=== PATIENT | male | born 1975 | race Caucasian/White ===

== ENCOUNTER 2016-10-27 15:11 | Emergency (ER) | payer BC, OTHER ==
[~2016-10-27] VITALS: Ht 185.4 cm; Wt 95.0 kg
[~2016-10-27 15:11] MED LIST: WARF5TAB72 PO
[2016-10-27 15:12] VITALS: Ht 185.4 cm; Wt 95.0 kg
[2016-10-27 16:55] LABS: INR 1.67; PARTIAL THROMBOPLASTIN TIME 35.5 Sec (25.0-35.0); PROTIME 19.8 Sec (12.2-14.2); PT RATIO 1.5
--- NOTE | 2016-10-27 17:24 | ERD ---
ER Documentation Chief Complaint Date/Time DATE: 10/27/16 TIME: 17:21 Chief Complaint LAB WORK REQUEST HPI 41-year-old female patient with a past medical history of aortic valve surgery in 1994 has been taking Coumadin for the past 12 years. States that he is here for a laboratory test for his INR. Patient is a poor historian and states that he has been taking Coumadin 5 mg but they increased it to 7.5 mg and 10 mg at some point and is unsure if they mixed up his INR level from 2 weeks ago and came himself here to check the level. Denies any chest pain, shortness of breath, fever, chills, abdominal pain, wheezing, dyspnea on exertion, wheezing. ROS All systems reviewed and are negative except as per history of present illness. Medications Home Meds Active Scripts Warfarin Sodium* (Coumadin*) 5 Mg Tablet, 2 MG PO DAILY, #10 TAB Prov:WILLIAM ELIZONDO MD 03/19/15 Warfarin Sodium* (Coumadin*) 5 Mg Tablet, 5 MG PO DAILY, #30 TAB Prov:WILLIAM ELIZONDO MD 03/19/15 Reported Medications Warfarin Sodium* (Coumadin*) 5 Mg Tablet, 5 MG PO DAILY, TAB 02/09/14 Allergies Allergies: Coded Allergies: No Known Allergy (Unverified , 03/19/15) PMhx/Soc History of Surgery: Yes (HEART VALVE) Anesthesia Reaction: No Hx Neurological Disorder: No Hx Respiratory Disorders: No Hx Cardiac Disorders: Yes (HEART VALVE) Hx Psychiatric Problems: No Hx Miscellaneous Medical Probl: No Hx Alcohol Use: No Hx Substance Use: No Hx Tobacco Use: No Smoking Status: Never smoker Physical Exam Vitals Vital Signs Date Time Temp Pulse Resp B/P Pulse Ox O2 Delivery O2 Flow Rate FiO2 10/27/16 15:12 97.3 72 19 131/83 97 Physical Exam Const: [id number]-[id number]-[id number], well-nourished. In no acute distress. Head: Atraumatic, normocephalic Eyes: Normal Conjunctiva without injection. No purulent discharge. PERRL. EOMI ENT: Normal external ear, nose, throat.. Non-erythematous pharynx. Uvula midline. No drooling. No trismus. Neck: Full range of motion. No meningismus. No cervical lymphadenopathy. Resp: Clear to auscultation bilaterally. No wheezing, rhonchi, rales, or crackles. No accessory muscle use. No retractions. No stridor. Cardio: Regular rate and rhythm. No murmurs, rubs or gallops. Skin: No petechiae or rashes Ext: No cyanosis, or edema. Neur: Awake and alert. Psych: Normal Mood and Affect Results 24 hrs Laboratory Tests Test 10/27/16 16:15 Prothrombin Time 19.8Sec Prothrombin Time Ratio 1.5 INR International Normalized Ratio 1.67 Activated Partial Thromboplast Time 35.5Sec Procedures/MDM This is a 41-year-old male patient with a status post aortic valve surgery presents to the ED for laboratory testing for his INR. Patient is afebrile nontoxic appearing. Patient has normal vital signs. PT/INR and PTT was ordered to further evaluate patient. INR is 1.67. Patient Coumadin is subtherapeutic and was strictly instructed to follow-up with his primary care physician for appropriate dosing for his Coumadin. Low suspicion for acute myocardial infarction, pneumothorax, pneumonia, cardiac tamponade, aortic valve complication, pulmonary embolism, pleural effusion, AAA, aortic dissection, Boerhaave's syndrome, cardiac dysrhythmias,meningitis, intracranial bleed, seizure, stroke, TIA or other emergent conditions. Instructed patient to return to the ED sooner for any worsening symptoms. Patient's questions were answered. Patient understood and agreed with discharge plan. Patient discharged stable. Departure Diagnosis: Primary Impression: Encounter for laboratory test Condition: Stable Patient Instructions: Warfarin Sodium Oral tablet Referrals: [facility] YOU HAVE RECEIVED A MEDICAL SCREENING EXAM AND THE RESULTS INDICATE THAT YOU DO NOT HAVE A CONDITION THAT REQUIRES URGENT TREATMENT IN THE EMERGENCY DEPARTMENT. FURTHER EVALUATION AND TREATMENT OF YOUR CONDITION CAN WAIT UNTIL YOU ARE SEEN IN YOUR DOCTORS OFFICE WITHIN THE NEXT 1-2 DAYS. IT IS YOUR RESPONSIBILITY TO MAKE AN APPOINTMENT FOR FOLOW-UP CARE. IF YOU HAVE A PRIMARY DOCTOR --you should call your primary doctor and schedule an appointment IF YOU DO NOT HAVE A PRIMARY DOCTOR YOU CAN CALL OUR PHYSICIAN REFERRAL HOTLINE AT IF YOU CAN NOT AFFORD TO SEE A PHYSICIAN YOU CAN CHOSE FROM THE FOLLOWING [facility] [address] [facility]. [facility] [address] [facility] [address] [facility] [address] [facility] [address] [facility]. [facility]. [address] [facility]. [facility] YOU HAVE RECEIVED A MEDICAL SCREENING EXAM AND THE RESULTS INDICATE THAT YOU DO NOT HAVE A CONDITION THAT REQUIRES URGENT TREATMENT IN THE EMERGENCY DEPARTMENT. FURTHER EVALUATION AND TREATMENT OF YOUR CONDITION CAN WAIT UNTIL YOU ARE SEEN IN YOUR DOCTORS OFFICE WITHIN THE NEXT 1-2 DAYS. IT IS YOUR RESPONSIBILITY TO MAKE AN APPOINTMENT FOR FOLOW-UP CARE. IF YOU HAVE A PRIMARY DOCTOR --you should call your primary doctor and schedule and appointment IF YOU DO NOT HAVE A PRIMARY DOCTOR YOU CAN CALL OUR PHYSICIAN REFERRAL HOTLINE AT . IF YOU CAN NOT AFFORD TO SEE A PHYSICIAN YOU CAN CHOSE FROM THE FOLLOWING [facility] INSTITUTIONS: [facility] [address] [place] [address] [facility] [address] [place] [address] [facility] [address] [place] [address] [facility] Additional Instructions: FOLLOW UP WITH YOUR PRIMARY CARE PHYSICIAN TOMORROW for further evaluation and treatment to dose your coumadin according to the INR that was resulted today.Return to this facility if you are not improving as expected. CON GU PA-C Oct 27, 2016 17:24 CON GU PA-C Oct 27, 2016 17:24
== END 2016-10-27 17:15 | disposition home or self-care (01) ==
LOC: FTE 15:11
DX: Z00.00 Encounter for general adult medical examination without abnormal findings (principal); Z79.01 Long term (current) use of anticoagulants
CPT/HCPCS: 85610; 85730; 99283

== ENCOUNTER 2016-11-17 16:33 | Emergency (ER) | payer OTHER ==
[~2016-11-17] VITALS: Ht 170.2 cm; Wt 97.0 kg
[2016-11-17 17:13] VITALS: Ht 170.2 cm; Wt 97.0 kg
--- NOTE | 2016-11-17 17:40 | ERD ---
ER Documentation Chief Complaint Date/Time DATE: 11/17/16 TIME: 17:39 Chief Complaint Sent from for eval PT, INR HPI 41-year-old man with a history of aortic valve surgery in 1994 has been taking Coumadin for the past 12 years is here for an INR check. He states his most recent value was a lab error and would like a recheck today. He denies easy bruising or bleeding, denies chest pain or shortness of breath, no fevers or chills, no hematuria or blood per rectum. Patient denies headache or blurry vision. ROS All systems reviewed and are negative except as per history of present illness. Medications Home Meds Active Scripts Warfarin Sodium* (Coumadin*) 5 Mg Tablet, 5 MG PO DAILY, #30 TAB Prov:SANTI MUÑOZ MD 11/17/16 Warfarin Sodium* (Coumadin*) 5 Mg Tablet, 2 MG PO DAILY, #10 TAB Prov:WILLIAM ELIZONDO MD 03/19/15 Warfarin Sodium* (Coumadin*) 5 Mg Tablet, 5 MG PO DAILY, #30 TAB Prov:WILLIAM ELIZONDO MD 03/19/15 Reported Medications Warfarin Sodium* (Coumadin*) 5 Mg Tablet, 5 MG PO DAILY, TAB 02/09/14 Allergies Allergies: Coded Allergies: No Known Allergy (Unverified , 03/19/15) PMhx/Soc Aortic valve replacement on anticoagulation with warfarin History of Surgery: Yes (HEART VALVE) Anesthesia Reaction: No Hx Neurological Disorder: No Hx Respiratory Disorders: No Hx Cardiac Disorders: Yes (HEART VALVE) Hx Psychiatric Problems: No Hx Miscellaneous Medical Probl: No Hx Alcohol Use: No Hx Substance Use: No Hx Tobacco Use: No FmHx Family History: No diabetes Physical Exam Vitals Vital Signs Date Time Temp Pulse Resp B/P Pulse Ox O2 Delivery O2 Flow Rate FiO2 11/17/16 18:36 98.0 76 20 122/87 99 Room Air 11/17/16 17:13 98.3 74 20 128/95 98 Physical Exam GENERAL: Well-developed, well-nourished, well-hydrated, in no apparent distress , looks nontoxic in appearance HEENT: Moist mucous membranes, pink conjunctiva, no cervical spine tenderness or step-off deformities, no goiter, no jaundice or icterus, extraocular movements intact without pain. No submandibular induration, and no pharyngeal erythema NEURO: Alert and oriented 3, cranial nerves II through XII intact bilaterally, pupils equal round reactive to light, no focal deficits or facial asymmetry, sensation intact distally Strength 5/5 in upper and lower extremities bilaterally CARDIAC: Regular rate and rhythm, no murmurs rubs or gallops LUNGS: Clear bilaterally no wheezing crackles or stridor ABDOMEN: Soft nontender, no guarding, no rigidity, no rebound, no psoas sign no obturator sign. Normoactive bowel sounds SKIN: Warm and dry to touch, no abrasions, contusions, or hematomas, no lacerations, no ecchymosis, no target lesions, and without ulcers EXTREMITIES: No clubbing cyanosis or edema, calves are bilaterally symmetrical, no Homans sign, no popliteal cord sign. Distal pulses equal and bilateral PSYCH: Normal affect without agitation or irritability Result Diagram: 11/17/16172911/17/16 1730 Results 24 hrs Laboratory Tests Test 11/17/16 17:30 White Blood Count 7.010^3/ul Red Blood Count 5.0410^6/ul Hemoglobin 14.8g/dl Hematocrit 43.5% Mean Corpuscular Volume 86.3fl Mean Corpuscular Hemoglobin 29.4pg Mean Corpuscular Hemoglobin Concent 34.0g/dl Red Cell Distribution Width 13.3% Platelet Count 44984^3/UL Mean Platelet Volume 12.0fl Neutrophils % 64.0% Lymphocytes % 27.0% Monocytes % 7.0% Eosinophils % 1.3% Basophils % 0.4% Nucleated Red Blood Cells % 0.0/100WBC Neutrophils # 4.510^3/ul Lymphocytes # 1.910^3/ul Monocytes # 0.510^3/ul Eosinophils # 0.110^3/ul Basophils # 0.010^3/ul Nucleated Red Blood Cells # 0.010^3/ul Prothrombin Time 23.2Sec Prothrombin Time Ratio 1.8 INR International Normalized Ratio 2.04 Sodium Level 144mmol/L Potassium Level 4.1mmol/L Chloride Level 106mmol/L Carbon Dioxide Level 28mmol/L Anion Gap 14 Blood Urea Nitrogen 17mg/dl Creatinine 1.02mg/dl Glucose Level 92mg/dl Calcium Level 9.9mg/dl Procedures/MDM CBC and electrolytes were normal, INR was 2. Differential diagnoses considered, included but not limited to acute coronary syndrome, pulmonary embolism, aortic dissection, abdominal aortic aneurysm, sepsis, stroke, meningitis, encephalitis, pneumonia, appendicitis, cholecystitis , bowel obstruction, pyelonephritis, nephrolithiasis, cystitis, as well as metabolic, hematologic, and electrolyte abnormalities. As well as abscess, cellulitis, fractures, and dislocations. Patient feels much better at this time, and vital signs are normal, symptoms have improved. I did give strict instructions to return to the ED if symptoms continue or worsen, patient will otherwise follow-up with primary care physician. Patient understood instructions and agreed to plan. Disclaimer: Inadvertent spelling and grammatical errors are likely due to EHR/ dictation software use and do not reflect on the overall quality of patient care. Also, please note that the electronic time recorded on this note does not necessarily reflect the actual time of the patient encounter. Departure Diagnosis: Primary Impression: Medication refill Condition: SANTI Mcfarlane MD Nov 17, 2016 17:40
[2016-11-17 17:53] LABS: ADD SCAN DIFF NO
[2016-11-17 17:56] LABS: BASOPHILS % 0.4 % (0.0-2.0); EOSINOPHILS # 0.1 10^3/ul (0.0-0.5); EOSINOPHILS % 1.3 % (0.0-7.0); HEMATOCRIT 43.5 % (42.0-52.0); HEMOGLOBIN 14.8 g/dl (14.0-18.0); LYMPHOCYTES # 1.9 10^3/ul (0.8-2.9); MEAN CORPUSCULAR HEMOGLOBIN 29.4 pg (29.0-33.0); MEAN CORPUSCULAR VOLUME 86.3 fl (82.0-101.0); MONOCYTE # 0.5 10^3/ul (0.3-0.9); NEUTROPHIL # 4.5 10^3/ul (1.6-7.5); PLATELET COUNT 165 10^3/UL (140-415); RED BLOOD COUNT 5.04 10^6/ul (4.70-6.10); RED CELL DISTRIBUTION WIDTH 13.3 % (11.5-14.5)
[2016-11-17 18:16] LABS: INR 2.04; PROTIME 23.2 Sec (12.2-14.2); PT RATIO 1.8
[2016-11-17 18:18] LABS: CALCIUM 9.9 mg/dl (8.4-10.2); CREATININE 1.02 mg/dl (0.61-1.24); POTASSIUM 4.1 mmol/L (3.5-5.1)
[2016-11-17] MEDS ORDERED: WARF5TAB72 PO (18:34)
[2016-11-17 18:36] VITALS: BP 122/87; PULSE 76; RESP 20; TEMP 98
== END 2016-11-17 18:39 | disposition home or self-care (01) ==
LOC: FTE 16:33
DX: Z00.00 Encounter for general adult medical examination without abnormal findings (principal); Z76.0 Encounter for issue of repeat prescription; Z79.01 Long term (current) use of anticoagulants
CPT/HCPCS: 80048; 85025; 85610; Z7502; 99283

== ENCOUNTER 2017-04-02 11:15 | Emergency (ER) | payer OTHER ==
[~2017-04-02] VITALS: Wt 95.3 kg
[2017-04-02 12:54] LABS: BASOPHILS % 0.4 % (0.0-2.0); EOSINOPHILS # 0.1 10^3/ul (0.0-0.5); EOSINOPHILS % 1.5 % (0.0-7.0); HEMATOCRIT 47.1 % (42.0-52.0); HEMOGLOBIN 15.5 g/dl (14.0-18.0); LYMPHOCYTES # 1.8 10^3/ul (0.8-2.9); LYMPHOCYTES % 24.4 % (15.0-51.0); MEAN CORPUSCULAR HEMOGLOBIN 28.9 pg (29.0-33.0); MEAN CORPUSCULAR HGB CONC 32.9 g/dl (32.0-37.0); MEAN CORPUSCULAR VOLUME 87.7 fl (82.0-101.0); MEAN PLATELET VOLUME 11.6 fl (7.4-10.4); MONOCYTE # 0.5 10^3/ul (0.3-0.9); MONOCYTES % 7.1 % (0.0-11.0); NEUTROPHIL # 4.8 10^3/ul (1.6-7.5); NEUTROPHILS % 66.3 % (39.0-77.0); PLATELET COUNT 153 10^3/UL (140-415); RED BLOOD COUNT 5.37 10^6/ul (4.70-6.10); RED CELL DISTRIBUTION WIDTH 13.2 % (11.5-14.5); WHITE BLOOD COUNT 7.2 10^3/ul (4.8-10.8)
[2017-04-02 13:10] LABS: INR 3.38; PROTIME 34.7 Sec (12.2-14.2); PT RATIO 2.7
[2017-04-02 13:11] LABS: PARTIAL THROMBOPLASTIN TIME 42.4 Sec (25.0-35.0)
[2017-04-02 13:14] LABS: CALCIUM 9.4 mg/dl (8.4-10.2); CREATININE 1.01 mg/dl (0.61-1.24); POTASSIUM 4.6 mmol/L (3.5-5.1)
--- NOTE | 2017-04-02 13:57 | RADRPT ---
PROCEDURE: CT Brain without contrast. CLINICAL INDICATION: Headaches. Neurologic deficit TECHNIQUE: A CT of the brain was performed on multidetector high-resolution CT scanner utilizing a xial sections from the skull base through the vertex without contrast. One or more of the following dose reduction techniques were used: Automated exposure control, Adjustment of the mA and/or kV acc ording to patient size, and/or use of iterative reconstruction technique. DOSE: CTDI = 44 mGy and the DLP = 720 mGy-cm. COMPARISON: None available FINDINGS: No acute intracranial hemorrhage, significant mass effect or midline shift. Chronic right frontal o percular and left basal ganglia encephalomalacia. Prominence of the cortical sulci and ventricles ar e related to mild cerebral volume loss. No significant opacification of the visualized paranasal s inuses or mastoids. IMPRESSION: No acute intracranial hemorrhage or mass effect. 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
[2017-04-02] MEDS ORDERED: TRAM50TA2 PO (14:23)
[2017-04-02 14:38] VITALS: BP 135/76; PULSE 75; RESP 18
--- NOTE | 2017-04-02 15:04 | ERD ---
ER Documentation Chief Complaint Chief Complaint malone, dizzy HPI Patient is a 42-year-old male presenting to the emergency department with complaints of intermittent headache and dizziness for 2 days. He describes the headache as dull and mild in severity. He denies neck pain, fevers, nausea, vomiting, dizziness, or other symptoms. He is on Coumadin for history of aortic valve repair, and he is requesting his INR to be checked. ROS All systems reviewed and are negative except as per history of present illness. Medications Home Meds Active Scripts Tramadol HCl (Tramadol HCl) 50 Mg Tablet, 50 MG PO Q4 Y for PAIN, #12 TAB Prov:HENRIQUE DENSON PA-C 04/02/17 Warfarin Sodium* (Coumadin*) 5 Mg Tablet, 5 MG PO DAILY, #30 TAB Prov:SANTI MUÑOZ MD 11/17/16 Warfarin Sodium* (Coumadin*) 5 Mg Tablet, 2 MG PO DAILY, #10 TAB Prov:WILLIAM ELIZONDO MD 03/19/15 Warfarin Sodium* (Coumadin*) 5 Mg Tablet, 5 MG PO DAILY, #30 TAB Prov:WILLIAM ELIZONDO MD 03/19/15 Reported Medications Warfarin Sodium* (Coumadin*) 5 Mg Tablet, 5 MG PO DAILY, TAB 02/09/14 Allergies Allergies: Coded Allergies: No Known Allergy (Unverified , 03/19/15) PMhx/Soc History of Surgery: Yes (HEART VALVE) Anesthesia Reaction: No Hx Neurological Disorder: No Hx Respiratory Disorders: No Hx Cardiac Disorders: Yes (HEART VALVE) Hx Psychiatric Problems: No Hx Miscellaneous Medical Probl: No Hx Alcohol Use: No Hx Substance Use: No Hx Tobacco Use: No Smoking Status: Never smoker Physical Exam Vitals Vital Signs Date Time Temp Pulse Resp B/P Pulse Ox O2 Delivery O2 Flow Rate FiO2 04/02/17 14:38 75 18 135/76 98 Room Air 04/02/17 11:17 98.5 87 20 128/82 98 Physical Exam Const: Nontoxic, well-appearing male in no acute distress. Head: Atraumatic Eyes: Normal Conjunctiva ENT: Normal External Ears, Nose and Mouth. Neck: Full range of motion..~ No meningismus. Resp: Clear to auscultation bilaterally Cardio: Regular rate and rhythm, no murmurs Ext: No cyanosis, or edema Neur: Awake and alert Psych: Normal Mood and Affect Result Diagram: 04/02/17 1240 04/02/17 1240 Results 24 hrs Laboratory Tests Test 04/02/17 12:40 White Blood Count 7.210^3/ul Red Blood Count 5.3710^6/ul Hemoglobin 15.5g/dl Hematocrit 47.1% Mean Corpuscular Volume 87.7fl Mean Corpuscular Hemoglobin 28.9pg Mean Corpuscular Hemoglobin Concent 32.9g/dl Red Cell Distribution Width 13.2% Platelet Count 12127^3/UL Mean Platelet Volume 11.6fl Neutrophils % 66.3% Lymphocytes % 24.4% Monocytes % 7.1% Eosinophils % 1.5% Basophils % 0.4% Nucleated Red Blood Cells % 0.0/100WBC Neutrophils # 4.810^3/ul Lymphocytes # 1.810^3/ul Monocytes # 0.510^3/ul Eosinophils # 0.110^3/ul Basophils # 0.010^3/ul Nucleated Red Blood Cells # 0.010^3/ul Prothrombin Time 34.7Sec Prothrombin Time Ratio 2.7 INR International Normalized Ratio 3.38 Activated Partial Thromboplast Time 42.4Sec Sodium Level 142mmol/L Potassium Level 4.6mmol/L Chloride Level 103mmol/L Carbon Dioxide Level 31mmol/L Anion Gap 13 Blood Urea Nitrogen 13mg/dl Creatinine 1.01mg/dl Glucose Level 83mg/dl Calcium Level 9.4mg/dl Procedures/MDM 42-year-old male presenting to the emergency department with complaints of dizziness and headache. The patient is on Coumadin and he is requesting his INR level to be checked. He was offered pain medication, however he declined.Upon review of laboratory tests, there is no signs of leukocytosis or anemia, the patient's INR was slightly out of therapeutic range at 3.38. He was advised that he should skip one day of his Coumadin, and ask his primary care physician for further instruction. Chemistry panel showed no acute abnormalities. The results were shared with the patient and he was still complaining of headache, so considering his increased risk of bleeding on the Coumadin, I did order a head CT which showed no acute intracranial hemorrhage or mass-effect. These results were shared with the patient and he was given a copy. The patient was stable for discharge with prescriptions and instruction to have close primary care follow-up. He is to return immediately for any new or worsening symptoms. No evidence of life-threatening pathology at time of discharge. PROCEDURE: CT Brain without contrast. CLINICAL INDICATION: Headaches. Neurologic deficit TECHNIQUE: A CT of the brain was performed on multidetector high-resolution CT scanner utilizing axial sections from the skull base through the vertex without contrast. One or more of the following dose reduction techniques were used: Automated exposure control, Adjustment of the mA and/or kV according to patient size, and/or use of iterative reconstruction technique. DOSE: CTDI = 44 mGy and the DLP = 720 mGy-cm. COMPARISON: None available FINDINGS: No acute intracranial hemorrhage, significant mass effect or midline shift. 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. Prominence of the cortical sulci and ventricles are related to mild cerebral volume loss. No significant opacification of the visualized paranasal sinuses or mastoids. IMPRESSION: No acute intracranial hemorrhage or mass effect. 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 may be from prior infarcts RPTAT: AA .Jeremy Pedraza MD, MD Date Time Electronically viewed and signed by .Jeremy Pedraza MD, MD on 04/02/2017 13:57 Departure Diagnosis: Primary Impression: Headache Headache type: unspecified Headache chronicity pattern: acute headache Intractability: not intractable Qualified Code: R51 - Acute nonintractable headache, unspecified headache type Condition: Fair Patient Instructions: Self-Care for Headaches Additional Instructions: Call your primary care doctor TOMORROW for an appointment during the next 1-2 days.See the doctor sooner or return here if your condition worsens before your appointment time. HENRIQUE DENSON PA-C Apr 02, 2017 15:04
== END 2017-04-02 14:39 | disposition home or self-care (01) ==
LOC: FTE 11:15
DX: R51 Headache (principal); Z79.01 Long term (current) use of anticoagulants
CPT/HCPCS: 70450; 80048; 85025; 85610; 85730; Z7502

== ENCOUNTER 2017-09-02 14:16 | Emergency (ER) | END 2017-09-02 16:45 | disposition left against medical advice (07) ==